=== PATIENT | male | born 1970 ===

== ENCOUNTER 2020-09-20 10:02 | Outpatient (CLI) | payer OTHER | END 2020-09-20 10:03 | disposition home or self-care (01) | LOC: BURCT 10:02 | PROVIDERS: ATTEND Surgery | DX: M47.22 Other spondylosis with radiculopathy, cervical region (principal); M48.02 Spinal stenosis, cervical region; Z98.890 Other specified postprocedural states | CPT/HCPCS: 72050; 72125 ==